=== PATIENT | male | born 2000 | race Caucasian/White ===

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

== ENCOUNTER → 2018-01-11 | Outpatient (CLI) | payer MEDICAID | LOC: BMCIMAGING 13:47 | PROVIDERS: ATTEND Orthopaedic Surgery Hand Surgery | DX: Z47.89 Encounter for other orthopedic aftercare (principal); S72.301D Unspecified fracture of shaft of right femur, subsequent encounter for closed fracture with routine healing; S62.353D Nondisplaced fracture of shaft of third metacarpal bone, left hand, subsequent encounter for fracture with routine healing ==